=== PATIENT | male | born 1955 | race Caucasian/White ===

== ENCOUNTER → 2018-11-24 | Outpatient (CLI) | payer OTHER ==
--- NOTE | 2018-11-24 12:21 | MRI ---
EXAM DESCRIPTION: Brain w/oContrast CLINICAL HISTORY: BENIGN NEOPLASM OF MENINGES UNSPEC COMPARISON: None available TECHNIQUE: Non contrast MRI of the brain is performed according to our usual protocol including multiplanar multi sequence technique. FINDINGS: Sagittal T1 images show intact corpus callosum. Normal pituitary gland with normal T1 appearance of the shiva and medulla and upper cervical cord. Normal signal intensity within the clivus and calvarium. Left posterior parafalcine extra-axial mass with ring like low signal intensity and involvement of the inner table of the skull measures 2.4 x 1.8 cm. Meningioma would be the most likely consideration. Low signal intensity in the adjacent calvarial diplo could be extension of tumor or secondary sclerotic hyperostotic changes. Axial T2 fat sat images reveal preservation of intracranial vascular flow voids. Signal intensity within the parafalcine extra-axial mass is slightly greater than adjacent brain parenchyma and there is mild increased signal intensity in the white matter anterior to the lesion continues with mild underlying reactive edema. Low signal intensity within the mass may represent calcification or hemosiderin deposition from old hemorrhage. Normal yo matter and white matter T2 signal intensity. Normal ventricles with normal gyral and sulcal fold pattern. The globes appear intact and symmetrical. No abnormal fluid levels in the paranasal sinuses, tympanic cavities or mastoid air cells. Mild mucosal thickening in the paranasal sinuses. Axial flair images show normal signal intensity of the yo matter and the white matter. No microvascular ischemic changes. Mild increased signal intensity within the mass relative to adjacent yo matter and white matter. Mild adjacent white matter edema. Diffusion weighted images show mild increased signal intensity within the left parietal parafalcine mass. However ADC mapping does not confirm true restriction. Other areas of the brain parenchyma are negative for restricted diffusion. Axial T1 images show normal yo-white matter differentiation. No high signal intensity hemorrhagic lesion of the brain parenchyma. No subdural hematoma. Axial susceptibility weighted images are positive for focal signal loss within the mass consistent with calcification or hemosiderin deposition. No IV contrast was given for the exam. Brain lesion can be followed with CT or MRI to ensure stability or very slow growth as expected from a benign meningioma. Neoplastic extension into the adjacent calvarium is unusual for meningioma although hyperostotic sclerotic bone changes are typical. While dural metastasis may mimic meningioma, the size and apparent internal calcification would argue against a metastasis. IMPRESSION: Left parietal parafalcine extra-axial mass most consistent with a meningioma. See above. Mild adjacent reactive edematous changes in the cerebral white matter. Electronically signed by: Ayaz Weinberg MD 11/24/2018 12:19 PM CDT
== END ==
LOC: MRI 07:29
PROVIDERS: ATTEND Family Medicine
DX: D32.9 Benign neoplasm of meninges, unspecified (principal)

== ENCOUNTER → 2018-12-29 | Outpatient (CLI) | payer OTHER ==
--- NOTE | 2018-12-31 09:31 | MRI ---
EXAM DESCRIPTION: Brain w/Contrast: CR/DR/XR. Magnetic resonance imaging. CLINICAL HISTORY: 63 years Male, BRAIN MASS COMPARISON: Noncontrast MRI scan of the brain first of November 2018. TECHNIQUE: Coronal sagittal and axial images using multiple sequences utilizing gadolinium IV, 1 mL per 5 kg dose. FINDINGS: The mostly circumscribed extra-axial mass is again seen in the parasagittal meninges, abutting the posterior left occipital lobe near the vertex and the inner table of the skull. Minimal enhancement of the adjacent meninges. Also irregular and inhomogeneous enhancement in the inner table and marrow of the overlying left occipital skull. The periphery of the mass is homogeneously enhancing to a minimal degree except for the anterior medial aspect of the mass which has less enhancement and is impressing on the parasagittal cortical yo matter and the sulci. The greatest amount of enhancement is centrally surrounded by core of decreasing enhancement compared to the peripheral mass. This more enhancing/less enhancing tissue corresponds to the uniformly hypointense signal seen on the precontrast studies. Minimal tissue in the central core without enhancement. The remainder of the intra-axial and extra-axial brain shows no abnormal enhancement or mass effect.. IMPRESSION: Enhancement in posterior left parasagittal mass abutting the left occipital lobe, the central sulcus, and the left occipital bone of the skull. The size of the mass is stable since the prior study. Central hypointense region of the mass on the prior study, shows outer ring of decreased enhancement and anterior focus of increased enhancement. This can be seen in a meningioma with central hemorrhage or necrosis and demonstrates an aggressive nature. Also inhomogeneous enhancement in the overlying skull which suggests invasion of the inner table and possibly the marrow. Consider neurosurgical consult and tissue sampling for diagnosis. Electronically signed by: Anastacio Collier MD 12/30/2018 11:12 AM [facility]
== END ==
LOC: MRI 12:02
PROVIDERS: ATTEND Neurological Surgery
DX: G93.9 Disorder of brain, unspecified (principal)

== ENCOUNTER 2020-04-07 05:39 | Day surgery (SDC) | payer BC, OTHER ==
[2020-04-07] MEDS ORDERED: LIDOCAINE 1% 10 ML VIAL INJ ONE (07:00)
[2020-04-07] MEDS ORDERED: PROPOFOL 200 MG/20 ML VIAL IV ONE (07:00)
[2020-04-07] MEDS ORDERED: LACTATED RINGERS 1,000 ML ONE (07:04)
[2020-04-07] MEDS ORDERED: LACTATED RINGERS 1,000 ML IVS ONE (07:50)
[2020-04-07] MEDS ORDERED: LACTATED RINGERS 600 ML IVS ONE (09:02)
--- NOTE | 2020-04-07 09:32 | OP ---
DATE OF PROCEDURE: 04/07/20 PREOPERATIVE DIAGNOSIS: 1. Screening colonoscopy. POSTOPERATIVE DIAGNOSIS: 1. Colon polyps. PROCEDURE: 1. Colonoscopy with forceps excision of polyps x2. SURGEON: Ilya Bettencourt MD ANESTHESIA: General. FINDINGS: After having to position the patient two separate times due to colon looping, we ultimately did get to the cecum as identified by the appendiceal orifice and 2 polyps were seen, one at approximately 60 cm and one at 40 cm, corresponding to distal transverse and proximal descending, small, less than 2 mm polyps. COMPLICATIONS: None. ESTIMATED BLOOD LOSS: None. PLAN: Discharge. INDICATION: As stated. PROCEDURE: The patient does have vertigo, so we were careful to position him remaining head up as best as we could. The colonoscope was inserted and with adequate prep, it was passed through. We could not reach the right colon initially. We brought the scope back and tried at least three times, then gently turned him onto his back, again reaching just at the hepatic flexure but unable to avoid loop and get it into the right colon. After we turned him on his side one more time, we magically got into the cecum and identified the appendiceal orifice. Upon withdrawal, the mucosal surfaces appeared normal. Again, it was an adequate prep. We identified two small 2 mm or less polyps in the distal transverse and proximal descending colon. The remainder of the exam was normal. The patient tolerated the procedure. He was awakened and taken to Recovery to be discharged. #[id number] cc: MD NELLY Kingsley
[2020-04-07] MEDS ORDERED: ONDANSETRON INJ 4 MG/2 ML VIAL ONE (09:39)
[2020-04-07 10:22] VITALS: BP 146/99; TEMP 98; O2SAT 96
== END 2020-04-07 10:05 | disposition home or self-care (01) ==
LOC: AMB 05:39
PROVIDERS: ATTEND Surgery
DX: Z12.11 Encounter for screening for malignant neoplasm of colon (principal); K63.5 Polyp of colon; D12.6 Benign neoplasm of colon, unspecified; K59.00 Constipation, unspecified; E78.00 Pure hypercholesterolemia, unspecified; Z79.899 Other long term (current) drug therapy
CPT/HCPCS: 00812; 45380; J2405; J3490; J7120